=== PATIENT | male | born 1955 | race Caucasian/White ===

== ENCOUNTER 2023-04-28 09:45 | Outpatient (OUT) | payer MEDICARE, OTHER, SELFPAY ==
--- NOTE | 2023-04-28 11:42 | XR_ITS ---
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 Stable subtalar fusion. Partial pes planus with rotation of the hindfoot in relation to the midfoot. Severe degenerative changes with joint space narrowing and marginal osteophyte formation. SOFT TISSUES:Moderate diffuse soft tissue swelling EFFUSION:Joint effusion OTHER: Negative. IMPRESSION: Stable exam with degenerative changes, fracture of navicular replacement fixation screws and plantar rotation of the hindfoot in relation to the midfoot Electronically authenticated by: TIFFANY AYOUB Date: 04/28/2023 20:32
== END 2023-04-28 09:46 | disposition home or self-care (01) ==
LOC: RAD 09:45
PROVIDERS: Visit Provider Podiatrist Foot & Ankle Surgery
DX: M25.571 Pain in right ankle and joints of right foot (principal)
CPT/HCPCS: 73630